=== PATIENT | female | born 1965 | race Asian ===

== ENCOUNTER 2022-08-14 11:47 | Outpatient (CLI) | payer BC | END 2022-08-14 11:48 | disposition home or self-care (01) | LOC: BICMAMMO 11:47 | PROVIDERS: ATTEND Family Medicine | DX: Z12.31 Encounter for screening mammogram for malignant neoplasm of breast (principal) | CPT/HCPCS: 77063; 77067 ==

== ENCOUNTER → 2023-03-24 | Day surgery (SDC) | payer BC ==
[2023-03-13 08:23] VITALS: BMI 34.5
[2023-03-13 08:51] LABS: Hemoglobin 13.6 g/dL (12.0-15.5); Mean Corpuscular HGB CONC 32.4 g/dL (32.0-36.0); Mean Corpuscular Hemoglobin 30.2 pg (27.0-33.0); Mean Corpuscular Volume 93.3 fl (81.6-98.3); Mean Platelet Volume 9.4 fl (7.4-10.4); Platelet Count 333 10x3/uL (150-450); RBC Distribution Width 13.2 % (11.5-14.5); White Blood Cell (WBC) Count 6.2 10x3/uL (3.5-10.5)
[2023-03-13 08:58] LABS: INR-International Normal Ratio 0.9; Prothrombin Time 10.2 sec (9.5-12.1)
[2023-03-13 09:55] LABS: Anion Gap 16 mmol/L (10-20); BUN (Urea Nitrogen) 25 mg/dL (9.8-20.1); Calc. Creatinine Clearance 85 mL/min (70-130); Calcium 8.8 mg/dL (7.8-10.44); Carbon Dioxide 18 mmol/L (22-29); Chloride 109 mmol/L (98-107); Estimated GFR 66; Glucose 96 mg/dL (70-105); Potassium 4.8 mmol/L (3.5-5.1); Sodium 138 mmol/L (136-145)
[~2023-03-24] MED LIST: Heparin 10,000 UNITS/ 10 ML VIAL ONE; Isoproterenol 0.2 MG/1 ML AMP ONE; Lidocaine 1% (PF) 30 ML VIAL ONE; Lidocaine 1% PF 5 ML VIAL ONE; Ondansetron PF 4 MG/2 ML Vial ONE; PHENYLEPHRINE-NS 100 MCG/ML 10 ML SYRINGE ONE; PROPOFOL 200 MG/20 ML VIAL ONE; Propofol 500 MG/50 ML VIAL ONE; fentaNYL 50 mcg/mL 1 mL Vial ONE
== END ==
LOC: SDC 06:20
PROVIDERS: ATTEND Internal Medicine Cardiovascular Disease
PROC: 02583ZZ Destruction of Conduction Mechanism, Percutaneous Approach (ICD-10-PCS; principal; 2023-03-24)
PROC: 02K83ZZ Map Conduction Mechanism, Percutaneous Approach (ICD-10-PCS; principal; 2023-03-24)
DX: I47.10 Supraventricular tachycardia, unspecified (principal); I47.19 Other supraventricular tachycardia
CPT/HCPCS: 80048; 85027; 85610; 93005; 93613; 93621; 93653; C1730; C1894; C2630; J1644; J2001; J2405; J2704; J3010

== ENCOUNTER 2023-11-13 08:39 | Outpatient (CLI) | payer BC | END 2023-11-13 08:40 | disposition home or self-care (01) | LOC: BICULT 08:39 | PROVIDERS: ATTEND Family Medicine | DX: R14.0 Abdominal distension (gaseous) (principal); R10.2 Pelvic and perineal pain; K76.89 Other specified diseases of liver | CPT/HCPCS: 76700; 76856 ==

== ENCOUNTER 2024-11-22 10:07 | Outpatient (CLI) | payer BC | END 2024-11-22 10:08 | disposition home or self-care (01) | LOC: BICMAMMO 10:07 | PROVIDERS: ATTEND Family Medicine | DX: Z12.31 Encounter for screening mammogram for malignant neoplasm of breast (principal); N95.9 Unspecified menopausal and perimenopausal disorder; M85.88 Other specified disorders of bone density and structure, other site | CPT/HCPCS: 77063; 77067; 77080 ==